=== PATIENT | female | born 1940 | race Caucasian/White ===

== ENCOUNTER 2018-05-07 03:13 | Emergency (ER) | payer OTHER ==
--- OUTSIDE RECORDS SUMMARY | 2018-05-07 03:16 | XMS REPORT | Clinical Summary ---
:1940 [facility] Address [address] [place] [address] Care Team Providers Name Role Phone Unavailable Primary Care Provider Unavailable Allergies No Known Allergies Medications Medication Sig Dispensed Refills Start Date End Date Status nystatin Apply topically 2 15 g 0 07/13/2016 07/13/2017 (MYCOSTATIN) (two) times daily. 100,000 unit/gram powder Active Problems Problem Noted Date Diabetes mellitus type 2, controlled, without complications 07/11/2016 Leukocytosis 07/11/2016 Cellulitis of multiple sites of head and neck 07/10/2016 Morbid obesity 07/10/2016 Essential hypertension 07/10/2016 Chronic bronchitis 07/10/2016 Inspiratory stridor 07/09/2016 Airway compromise 07/09/2016 Social History Tobacco Use Types Packs/Day Years Used Date Never Smoker Sex Assigned at Date Recorded Not on file Job Start Date Occupation Industry Not on file Not on file Not on file Travel History Travel Start Travel End No recent travel history available. Last Filed Vital Signs Not on file Plan of Treatment Not on file Results Not on fileafter 05/06/2017 Insurance Payer Benefit Plan / Group Subscriber ID Type Phone Address MEDICARE MEDICARE A B xxxxxxxxxx Medicare (Home) [address] [place] [phone] Advance Directives For more information, please contact:[facility] HospitalAmxpue[address] [place], [place] [phone] Code Status Date Activated Date Inactivated Comments Full Code 07/09/2016 8:43 AM 07/13/2016 4:05 PM This code status was determined by: Patient
--- OUTSIDE RECORDS SUMMARY | 2018-05-07 03:16 | XMS REPORT ---
:1940 Author Organization [facility] Address [address] [place] [address] [address] [place] [address] Care Team Providers Name Role Phone ALICE QUILES Unavailable Unavailable Problems This patient has no known problems. Allergies, Adverse Reactions, Alerts This patient has no known allergies or adverse reactions. Medications This patient has no known medications. Results Test Description Test Time Test Comments Text Results Atomic Results Result Comments BLOOD CULTURE 2016-07-14 12:00:00 Test Item Value Reference Range Comments CULTURE (BEAKER) (test alxk=1669) No growth in 5 days BLOOD [id number] 12:00:00 Test Item Value Reference Range Comments CULTURE (BEAKER) (test ptyw=4528) No growth in 5 days POCT-GLUCOSE [id number] 11:44:00 Test Item Value Reference Range Comments POC-GLUCOSE METER (BEAKER) 92 mg/dL 70-110 TESTED AT [address] (test mwwm=1127) [facility] [address] POCT-GLUCOSE [id number] 08:17:00 Test Item Value Reference Range Comments POC-GLUCOSE METER (BEAKER) 85 mg/dL 70-110 TESTED AT [address] (test yfeo=7486) [place] [id number] POCT-GLUCOSE [id number] 22:08:00 Test Item Value Reference Range Comments POC-GLUCOSE METER (BEAKER) 115 mg/dL 70-110 TESTED AT [address] (test hbne=2359) [facility] [address] CBC W/PLT COUNT & AUTO [id number] 07:14:00 Test Item Value Reference Range Comments WHITE BLOOD CELL COUNT (BEAKER) (test rpqo=643) 10.9 K/ L 4.0-10.0 RED BLOOD CELL COUNT (BEAKER) (test lgmr=754) 3.40 M/ L 4.00-5.00 HEMOGLOBIN (BEAKER) (test ggfa=551) 11.4 GM/DL 12.0-15.0 HEMATOCRIT (BEAKER) (test lcka=316) 35.2 % 36.0-45.0 MEAN CORPUSCULAR VOLUME (BEAKER) (test gmim=953) 104.0 fL 82.0-99.0 MEAN CORPUSCULAR HEMOGLOBIN (BEAKER) (test 33.6 pg 27.0-33.0 gmru=628) MEAN CORPUSCULAR HEMOGLOBIN CONC (BEAKER) (test 32.4 GM/DL 32.0-36.0 rucs=682) RED CELL DISTRIBUTION WIDTH (BEAKER) (test 13.7 % 10.3-14.2 riev=215) PLATELET COUNT (BEAKER) (test gteo=706) 206 K/CU MM 150-430 MEAN PLATELET VOLUME (BEAKER) (test edir=592) 7.8 fL 6.5-10.5 NUCLEATED RED BLOOD CELLS (BEAKER) (test 0 /100 WBC 0-0 ryaf=129) NEUTROPHILS RELATIVE PERCENT (BEAKER) (test 84 % utlm=250) LYMPHOCYTES RELATIVE PERCENT (BEAKER) (test 8 % lmnu=963) MONOCYTES RELATIVE PERCENT (BEAKER) (test 7 % tvpr=022) EOSINOPHILS RELATIVE PERCENT (BEAKER) (test 0 % oypg=723) BASOPHILS RELATIVE PERCENT (BEAKER) (test 0 % hkjg=655) NEUTROPHILS ABSOLUTE COUNT (BEAKER) (test 9.17 K/ L 1.80-8.00 ghaw=080) LYMPHOCYTES ABSOLUTE COUNT (BEAKER) (test 0.88 K/ L 1.48-4.50 cdfn=467) MONOCYTES ABSOLUTE COUNT (BEAKER) (test 0.79 K/ L 0.00-1.30 fyiu=026) EOSINOPHILS ABSOLUTE COUNT (BEAKER) (test 0.01 K/ L 0.00-0.50 zkuj=080) BASOPHILS ABSOLUTE COUNT (BEAKER) (test 0.01 K/ L 0.00-0.20 sfge=844) 0.00POCT-GLUCOSE [id number] 09:54:00 Test Item Value Reference Range Comments POC-GLUCOSE METER (BEAKER) 157 mg/dL 70-110 TESTED AT [address] (test vgjw=1196) [facility] [address] CBC W/PLT COUNT & AUTO [id number] 09:49:00 Test Item Value Reference Range Comments WHITE BLOOD CELL COUNT (BEAKER) (test umdy=219) 12.8 K/ L 4.0-10.0 RED BLOOD CELL COUNT (BEAKER) (test uggg=947) 3.33 M/ L 4.00-5.00 HEMOGLOBIN (BEAKER) (test nytx=264) 10.7 GM/DL 12.0-15.0 HEMATOCRIT (BEAKER) (test ovro=614) 34.2 % 36.0-45.0 MEAN CORPUSCULAR VOLUME (BEAKER) (test vgvz=344) 103.0 fL 82.0-99.0 MEAN CORPUSCULAR HEMOGLOBIN (BEAKER) (test 32.3 pg 27.0-33.0 eudm=923) MEAN CORPUSCULAR HEMOGLOBIN CONC (BEAKER) (test 31.4 GM/DL 32.0-36.0 zhkp=534) RED CELL DISTRIBUTION WIDTH (BEAKER) (test 12.9 % 10.3-14.2 aozm=825) PLATELET COUNT (BEAKER) (test sqvr=186) 224 K/CU MM 150-430 MEAN PLATELET VOLUME (BEAKER) (test oetc=873) 7.8 fL 6.5-10.5 NUCLEATED RED BLOOD CELLS (BEAKER) (test 0 /100 WBC 0-0 gqzv=632) NEUTROPHILS RELATIVE PERCENT (BEAKER) (test 91 % ntqn=381) LYMPHOCYTES RELATIVE PERCENT (BEAKER) (test 4 % aqrb=990) MONOCYTES RELATIVE PERCENT (BEAKER) (test 5 % rmol=187) EOSINOPHILS RELATIVE PERCENT (BEAKER) (test 0 % wqut=668) BASOPHILS RELATIVE PERCENT (BEAKER) (test 0 % smaw=898) NEUTROPHILS ABSOLUTE COUNT (BEAKER) (test 11.60 K/ L 1.80-8.00 ybeb=626) LYMPHOCYTES ABSOLUTE COUNT (BEAKER) (test 0.52 K/ L 1.48-4.50 dukx=775) MONOCYTES ABSOLUTE COUNT (BEAKER) (test 0.60 K/ L 0.00-1.30 zegv=924) EOSINOPHILS ABSOLUTE COUNT (BEAKER) (test 0.01 K/ L 0.00-0.50 naja=489) BASOPHILS ABSOLUTE COUNT (BEAKER) (test 0.00 K/ L 0.00-0.20 txdf=708) [id number] 07:48:00 Test Item Value Reference Range Comments MAGNESIUM (BEAKER) (test ynix=812) 2.3 mg/dL 1.6-2.6 BASIC METABOLIC [id number] 07:48:00 Test Item Value Reference Range Comments SODIUM (BEAKER) (test 141 meq/L 136-145 azph=817) POTASSIUM (BEAKER) (test 3.9 meq/L 3.5-5.1 txla=241) CHLORIDE (BEAKER) (test 106 meq/L 98-107 famx=718) CO2 (BEAKER) (test 24 meq/L 22-29 dauz=384) BLOOD UREA NITROGEN 31 mg/dL 7-21 (BEAKER) (test domn=130) CREATININE (BEAKER) (test 0.96 mg/dL 0.57-1.25 oyre=435) GLUCOSE RANDOM (BEAKER) 145 mg/dL 70-105 (test otyt=568) CALCIUM (BEAKER) (test 9.1 mg/dL 8.4-10.2 xzbh=744) EGFR (BEAKER) (test 57 mL/min/1.73 sq m ESTIMATED GFR IS NOT lfpq=3635) ACCURATE CREATININE CLEARANCE IN PREDICTING GLOMERULAR FILTRATION RATE. ESTIMATED GFR IS NOT APPLICABLE FOR DIALYSIS PATIENTS. POCT-GLUCOSE [id number] 00:17:00 Test Item Value Reference Range Comments POC-GLUCOSE METER (BEAKER) 173 mg/dL 70-110 TESTED AT [address] (test vtbp=3911) [place] [id number] VANCOMYCIN LEVEL, [id number] 22:09:00 Test Item Value Reference Range Comments VANCOMYCIN TROUGH (BEAKER) (test yxxx=224) 14.7 ug/mL 10.0-20.0 Draw 30 min prior to scheduled dose, HOLD if level > 20 mcg/mL, inform .POCT-GLUCOSE [id number] 17:07:00 Test Item Value Reference Range Comments POC-GLUCOSE METER (BEAKER) 165 mg/dL 70-110 TESTED AT [address] (test gpnv=6898) [place] [id number] POCT-GLUCOSE [id number] 12:25:00 Test Item Value Reference Range Comments POC-GLUCOSE METER (BEAKER) 163 mg/dL 70-110 TESTED AT [facility] [address] (test arcu=1922) [facility] [address] CBC W/PLT COUNT & AUTO [id number] 07:17:00 Test Item Value Reference Range Comments WHITE BLOOD CELL COUNT (BEAKER) (test yqyh=234) 11.5 K/ L 4.0-10.0 RED BLOOD CELL COUNT (BEAKER) (test uyda=911) 3.50 M/ L 4.00-5.00 HEMOGLOBIN (BEAKER) (test vugl=162) 11.8 GM/DL 12.0-15.0 HEMATOCRIT (BEAKER) (test pxnx=043) 36.2 % 36.0-45.0 MEAN CORPUSCULAR VOLUME (BEAKER) (test ofuu=912) 103.0 fL 82.0-99.0 MEAN CORPUSCULAR HEMOGLOBIN (BEAKER) (test 33.6 pg 27.0-33.0 lsjm=264) MEAN CORPUSCULAR HEMOGLOBIN CONC (BEAKER) (test 32.6 GM/DL 32.0-36.0 zszh=409) RED CELL DISTRIBUTION WIDTH (BEAKER) (test 13.8 % 10.3-14.2 arar=955) PLATELET COUNT (BEAKER) (test mxwi=094) 198 K/CU MM 150-430 MEAN PLATELET VOLUME (BEAKER) (test cfsj=619) 7.3 fL 6.5-10.5 NUCLEATED RED BLOOD CELLS (BEAKER) (test 0 /100 WBC 0-0 mexb=142) 0.000.570.000.000.520.000.000.000.00(MANUAL DIFFERENTIAL)2016-07-10 07:17:00 Test Item Value Reference Range Comments NEUTROPHILS - REL (DIFF) (BEAKER) (test srns=6142) 43 % LYMPHOCYTES - REL (DIFF) (BEAKER) (test mnjk=1476) 3 % MONOCYTES - REL (DIFF) (BEAKER) (test ubym=6874) 6 % BANDS - REL (DIFF) (BEAKER) (test vodv=4931) 48 % 0-10 NEUTROPHILS - ABS (DIFF) (BEAKER) (test ysht=5310) 4.95 K/ L 1.80-8.00 LYMPHOCYTES - ABS (DIFF) (BEAKER) (test hmhp=7732) 0.35 K/ L 1.48-4.50 MONOCYTES - ABS (DIFF) (BEAKER) (test spga=0622) 0.69 K/ L 0.00-1.30 BANDS-ABS (DIFF) (BEAKER) (test roxe=4691) 5.5 K/ L 0.0-0.8 TOTAL COUNTED (BEAKER) (test kcqb=0550) 100 BANDS + SEGMENTED NEUTROPHILS (BEAKER) (test 10.47 sjdm=3685) PLT MORPHOLOGY (BEAKER) (test vrhr=013) Normal RBC MORPHOLOGY (BEAKER) (test xksb=455) Normal ATYPICAL LYMPHS(BEAKER) (test ypnw=9063) Present TOXIC GRANULATION (BEAKER) (test tdtw=094) Slight POCT-GLUCOSE [id number] 06:25:00 Test Item Value Reference Range Comments POC-GLUCOSE METER (BEAKER) 186 mg/dL 70-110 TESTED AT [address] (test vinb=2544) [facility] [address] [id number] 04:46:00 Test Item Value Reference Range Comments MAGNESIUM (BEAKER) (test basz=960) 2.0 mg/dL 1.6-2.6 BASIC METABOLIC [id number] 04:46:00 Test Item Value Reference Range Comments SODIUM (BEAKER) (test 141 meq/L 136-145 tkcb=110) POTASSIUM (BEAKER) (test 3.6 meq/L 3.5-5.1 tkdm=863) CHLORIDE (BEAKER) (test 107 meq/L 98-107 fwsn=549) CO2 (BEAKER) (test 26 meq/L 22-29 xkat=657) BLOOD UREA NITROGEN 25 mg/dL 7-21 (BEAKER) (test nztn=670) CREATININE (BEAKER) (test 0.81 mg/dL 0.57-1.25 nxep=469) GLUCOSE RANDOM (BEAKER) 168 mg/dL 70-105 (test vqgf=515) CALCIUM (BEAKER) (test 8.7 mg/dL 8.4-10.2 hxhm=694) EGFR (BEAKER) (test 69 mL/min/1.73 sq m ESTIMATED GFR IS NOT clbu=4761) ACCURATE CREATININE CLEARANCE IN PREDICTING GLOMERULAR FILTRATION RATE. ESTIMATED GFR IS NOT APPLICABLE FOR DIALYSIS PATIENTS. POCT-GLUCOSE [id number] 00:44:00 Test Item Value Reference Range Comments POC-GLUCOSE METER (BEAKER) 176 mg/dL 70-110 TESTED AT [facility] [address] (test zeis=5696) [facility] [address] HEMOGLOBIN [id number] 14:37:00 Test Item Value Reference Range Comments HEMOGLOBIN A1C (BEAKER) (test aopx=442) 7.1 % 4.3-6.1 CBC W/PLT COUNT & AUTO [id number] 10:46:00 Test Item Value Reference Range Comments WHITE BLOOD CELL COUNT (BEAKER) (test gsak=930) 11.3 K/ L 4.0-10.0 RED BLOOD CELL COUNT (BEAKER) (test lczn=087) 3.67 M/ L 4.00-5.00 HEMOGLOBIN (BEAKER) (test tykf=817) 12.4 GM/DL 12.0-15.0 HEMATOCRIT (BEAKER) (test bxkm=628) 37.3 % 36.0-45.0 MEAN CORPUSCULAR VOLUME (BEAKER) (test ipas=037) 102.0 fL 82.0-99.0 MEAN CORPUSCULAR HEMOGLOBIN (BEAKER) (test 33.9 pg 27.0-33.0 boir=791) MEAN CORPUSCULAR HEMOGLOBIN CONC (BEAKER) (test 33.3 GM/DL 32.0-36.0 ubpn=090) RED CELL DISTRIBUTION WIDTH (BEAKER) (test 12.9 % 10.3-14.2 qahq=113) PLATELET COUNT (BEAKER) (test abmy=660) 198 K/CU MM 150-430 MEAN PLATELET VOLUME (BEAKER) (test fesg=593) 7.3 fL 6.5-10.5 NUCLEATED RED BLOOD CELLS (BEAKER) (test 0 /100 WBC 0-0 tupp=492) NEUTROPHILS RELATIVE PERCENT (BEAKER) (test 92 % hobu=769) LYMPHOCYTES RELATIVE PERCENT (BEAKER) (test 3 % nvhs=751) MONOCYTES RELATIVE PERCENT (BEAKER) (test 4 % njhx=885) EOSINOPHILS RELATIVE PERCENT (BEAKER) (test 0 % uuuz=222) BASOPHILS RELATIVE PERCENT (BEAKER) (test 1 % ngtb=571) NEUTROPHILS ABSOLUTE COUNT (BEAKER) (test 10.40 K/ L 1.80-8.00 uhqq=808) LYMPHOCYTES ABSOLUTE COUNT (BEAKER) (test 0.36 K/ L 1.48-4.50 ehvc=089) MONOCYTES ABSOLUTE COUNT (BEAKER) (test 0.44 K/ L 0.00-1.30 msbj=074) EOSINOPHILS ABSOLUTE COUNT (BEAKER) (test 0.01 K/ L 0.00-0.50 ghpx=995) BASOPHILS ABSOLUTE COUNT (BEAKER) (test 0.15 K/ L 0.00-0.20 eyvx=315) [id number] 10:40:00 Test Item Value Reference Range Comments MAGNESIUM (BEAKER) (test awto=754) 1.8 mg/dL 1.6-2.6 BASIC METABOLIC [id number] 10:40:00 Test Item Value Reference Range Comments SODIUM (BEAKER) (test 141 meq/L 136-145 xmlh=063) POTASSIUM (BEAKER) (test 4.2 meq/L 3.5-5.1 dogb=311) CHLORIDE (BEAKER) (test 106 meq/L 98-107 mjgp=883) CO2 (BEAKER) (test 24 meq/L 22-29 gheu=623) BLOOD UREA NITROGEN 22 mg/dL 7-21 (BEAKER) (test hpzm=212) CREATININE (BEAKER) (test 0.84 mg/dL 0.57-1.25 lxez=563) GLUCOSE RANDOM (BEAKER) 158 mg/dL 70-105 (test ilcl=459) CALCIUM (BEAKER) (test 8.6 mg/dL 8.4-10.2 mons=758) EGFR (BEAKER) (test 66 mL/min/1.73 sq m ESTIMATED GFR IS NOT ivnv=2538) ACCURATE CREATININE CLEARANCE IN PREDICTING GLOMERULAR FILTRATION RATE. ESTIMATED GFR IS NOT APPLICABLE FOR DIALYSIS PATIENTS. [id number] 10:40:00 Test Item Value Reference Range Comments PARTIAL THROMBOPLASTIN TIME (BEAKER) (test 30.6 seconds 22.5-36.0 pfeh=164) PROTHROMBIN TIME/[id number] 10:39:00 Test Item Value Reference Range Comments PROTIME (BEAKER) (test eukv=674) 14.3 seconds 11.7-14.7 INR (BEAKER) (test bokk=504) 1.1 <=5.9 RECOMMENDED COUMADIN/WARFARIN INR THERAPY RANGESSTANDARD DOSE: 2.0 - 3.0 Includes: PROPHYLAXIS forvenous thrombosis, systemic embolization; TREATMENT for venous thrombosis and/or pulmonary embolus.HIGH RISK: Target INR is 2.5-3.5 for patients with mechanical heart valves.
[2018-05-07] MEDS ORDERED: FENTANYL CITR 100 MCG/2 ML ONE (04:45)
[2018-05-07] MEDS ORDERED: ONDANSETRON 4 MG/2 ML VIAL ONE (04:45)
[2018-05-07] MEDS ORDERED: NA CHLORIDE 0.9% 1,000 ML ONE (04:46)
[2018-05-07 04:55] LABS: Absolute Lymphocytes (CBC) 1.2 K/uL (0.7-4.9); Absolute Neutrophil 5.1 K/uL (1.8-8.0); Basophils % 0.9 % (0-1.3); Eosinophils % 5.5 % (0-4.4); Hematocrit 39.2 % (36.0-45.0); Lymphocytes % 15.3 % (15.3-44.8); MPV 8.5 fL (7.6-11.3); Monocytes % 12.3 % (3.3-12.3); RBC Red Blood Cell Count 4.21 M/uL (3.86-4.86)
[2018-05-07 05:22] LABS: Albumin 3.6 g/dL (3.4-5.0); Bilirubin Total 0.5 mg/dL (0.2-1.0); Potassium 3.6 mmol/L (3.5-5.1)
--- NOTE | 2018-05-07 05:50 | ER ---
Nurse's Notes [facility] Unit Name: Vicky Johnson Age: 78 yrs Sex: Female : 1940 Arrival Date: 05/07/2018 Time: 03:15 Bed 8 Private MD: Vance Rodriguez V Diagnosis: Fall due to bumping against object;Type 2 diabetes mellitus;Pain in left hip-fall;Low back pain;Fracture of third lumbar vertebra-right L3 facet, questionable fracture;Urinary tract infection, site not specified Presentation: 05/07 03:26 Presenting complaint: Patient states: Patient had a fall a week ago and X-ray was done ao yesterday outpatient but patient unaware of the results. Patient complains of left hip pain and back pain and denies nausea or vomiting. Transition of care: patient was not received from another setting of care. Onset of symptoms was April 30, 2018. Risk Assessment: Do you want to hurt yourself or someone else? Patient reports no desire to harm self or others. Initial Sepsis Screen: Does the patient meet any 2 criteria? No. Patient's initial sepsis screen is negative. Does the patient have a suspected source of infection? No. Patient's initial sepsis screen is negative. Care prior to arrival: None. 03:26 Method Of Arrival: Wheelchair ao 03:26 Acuity: BETO 3 ao Historical: - Allergies: 03:36 No Known Allergies; ao - Home Meds: 03:36 citalopram 20 mg tab 1 tab once daily [Active]; cyclobenzaprine 10 mg Oral tab 1 tab as ao needed [Active]; gabapentin 100 mg Oral cap 3 times per day [Active]; glimepiride 2 mg Oral tab 1 tab once daily [Active]; [place] 5-325 mg Oral tab [Active]; prednisone 10 mg Oral tab once daily [Active]; propranolol 120 mg Oral Cs24 1 cap once daily [Active]; triamterene-hydrochlorothiazid 37.5-25 mg Oral tab 1 tab once daily [Active]; - PMHx: 03:36 COPD; Hypertension; Diabetes - NIDDM; ao - PSHx: 03:33 Brain; Shoulder Sx; ao - Immunization history:: Adult Immunizations up to date. - Social history:: Smoking status: Patient/guardian denies using tobacco, Patient/guardian denies using alcohol, street drugs. - Ebola Screening: : Patient negative for fever greater than or equal to 101.5 degrees Fahrenheit, and additional compatible Ebola Virus Disease symptoms Patient denies exposure to infectious person Patient denies travel to an Ebola-affected area in the 21 days before illness onset. Screenin:44 Abuse screen: Denies threats or abuse. Denies injuries from another. Nutritional ao screening: No deficits noted. Tuberculosis screening: No symptoms or risk factors identified. Fall Risk Fall in past 12 months (25 points). Ambulatory Aid- Crutches/Cane/Walker (15 pts). Gait- Weak (10 pts.). Assessment: 03:32 General: Appears in no apparent distress. uncomfortable, obese, Behavior is calm, ao cooperative, appropriate for age. Pain: Complains of pain in back and left hip Pain currently is 10 out of 10 on a pain scale. Neuro: Level of Consciousness is awake, alert, obeys commands, Oriented to person, place, time, situation, Appropriate for age Moves all extremities. Full function Speech is normal, Facial symmetry appears normal. Cardiovascular: Heart tones S1 S2 Capillary refill < 3 seconds. Respiratory: Airway is patent Respiratory effort is even, unlabored, Respiratory pattern is regular, symmetrical. GI: Abdomen is obese. : No signs and/or symptoms were reported regarding the genitourinary system. EENT: No signs and/or symptoms were reported regarding the EENT system. Derm: Skin is pink, warm \T\ dry. normal, Skin temperature is warm. Musculoskeletal: Circulation, motion, and sensation intact. Range of motion: limited in all extremities, Reports pain in Back and left hip. Injury Description: Fall a week ago. Pt reports back pain and left hip pain. 03:40 Reassessment: Patient had a fall a week ago. No trauma activation at this time. ao 04:50 Reassessment: Patient appears in no apparent distress at this time. Patient and/or ao family updated on plan of care and expected duration. Pain level reassessed. Patient is alert, oriented x 3, equal unlabored respirations, skin warm/dry/pink. 06:19 Reassessment: DC instructions given to patient. Patient agree with POC and to follow up ao with PCP. Vital Signs: 03:33 BP 154 / 83; Pulse 81; Resp 16; Temp 97.6(O); Pulse Ox 96% on R/A; Weight 113.4 kg; ao Height 5 ft. 2 in. (157.48 cm); Pain 10/10; 04:10 BP 137 / 90; Pulse 79; Resp 18; Pulse Ox 95% on R/A; ea 05:53 BP 151 / 81; Pulse 76; Resp 16; Pulse Ox 97% ; ao 03:33 Body Mass Index 45.73 (113.40 kg, 157.48 cm) ao ED Course: 03:15 Patient arrived in ED. am2 03:15 Vance Rodriguez MD is Private Physician. am2 03:26 Shamar Torres, RN is Primary Nurse. ao 03:29 Triage completed. ao 03:34 Arm band placed on right wrist. Patient placed in an exam room, on a stretcher, on ao pulse oximetry, Patient notified of wait time. 03:42 To Roche MD is Attending Physician. delmar 03:44 Patient has correct armband on for positive identification. Pulse ox on. NIBP on. ao 05:[address] via stretcher. eh 05:11 CT completed. Patient tolerated procedure well. Patient moved back from CT. eh 05:40 Urine Culture Sent. ao 05:40 CBC with Diff Sent. ao 05:40 Comprehensive Metabolic Panel Sent. ao 05:40 CT Lumbar Spine Wo Con Sent. ao 05:40 Straight cath inserted, using sterile technique, 16 Fr. Specimen obtained. Returned ds4 cloudy urine. Patient tolerated well. 05:41 CT Pelvis wo Cont: include both hips Sent. ao 05:47 Vance Rodriguez MD is Referral Physician. delmar 05:47 Peyman Quiroz MD is Referral Physician. [place]mar 06:17 No provider procedures requiring assistance completed. IV discontinued, intact, ao bleeding controlled, No redness/swelling at site. Pressure dressing applied. Administered Medications: 04:35 Drug: NS 0.9% 500 ml Route: IV; Rate: bolus; Site: right antecubital; ao 05:51 Follow up: IV Status: Completed infusion; IV Intake: 500ml ao 04:51 Drug: Zofran 4 mg Route: IVP; Site: right antecubital; ao 05:52 Follow up: Response: No adverse reaction ao 04:52 Drug: fentaNYL (PF) 25 mcg Route: IVP; Site: right antecubital; ao 05:51 Follow up: Response: No adverse reaction ao 05:52 Follow up: Response: No adverse reaction ao 06:16 Drug: Rocephin - (cefTRIAXone) 1 grams Route: IVPB; Infused Over: 30 mins; Site: left ao antecubital; 06:16 Follow up: Response: No adverse reaction; IV Status: Completed infusion ao Intake: 05:51 IV: 500ml; Total: 500ml. ao Outcome: 05:47 Discharge ordered by . delmar 06:18 Discharged to home ambulatory. ao 06:18 Condition: stable 06:18 Discharge instructions given to patient, family, Instructed on discharge instructions, follow up and referral plans. Demonstrated understanding of instructions, follow-up care, medications. 06:19 Patient left the ED. ao Addendum: 05/11/2018 07:54 Addendum: Culture Results: Positive urine culture. No further action required. Bacteria i w sensitive to prescribed antibiotic. Signatures: To Roche MD MD cha Hagler, Ervin eh Williams, Irene, Duarte Culp RN ds4 Shamar Torres RN RN ao Moreno, Amanda am2 Fidelia Brooke RN RN ea Corrections: (The following items were deleted from the chart) 05/07 03:46 03:44 Fall Risk None identified. ao ao
--- NOTE | 2018-05-07 05:50 | EDPHYS ---
Physician Documentation [facility] Name: Vicky Johnson Age: 78 yrs Sex: Female : 1940 Arrival Date: 05/07/2018 Time: 03:15 Bed 8 Private MD: Vance Rodriguez V ED Physician To Roche HPI: 05/07 04:34 This 78 yrs old Female presents to ER via Wheelchair with complaints of Fall delmar Injury, Hip Pain, Back Pain. 04:34 Details of fall: The patient fell from an upright position, while walking. Onset: The delmar symptoms/episode began/occurred 1 week(s) ago. Associated injuries: The patient sustained injury to the low back, left femoral area and left hip, decreased range of motion, painful injury. Severity of symptoms: At their worst the symptoms were mild, moderate, in the emergency department the symptoms are unchanged. The patient has not experienced similar symptoms in the past. Historical: - Allergies: 03:36 No Known Allergies; ao - Home Meds: 03:36 citalopram 20 mg tab 1 tab once daily [Active]; cyclobenzaprine 10 mg Oral tab 1 tab as ao needed [Active]; gabapentin 100 mg Oral cap 3 times per day [Active]; glimepiride 2 mg Oral tab 1 tab once daily [Active]; [place] 5-325 mg Oral tab [Active]; prednisone 10 mg Oral tab once daily [Active]; propranolol 120 mg Oral Cs24 1 cap once daily [Active]; triamterene-hydrochlorothiazid 37.5-25 mg Oral tab 1 tab once daily [Active]; - PMHx: 03:36 COPD; Hypertension; Diabetes - NIDDM; ao - PSHx: 03:33 Brain; Shoulder Sx; ao - Immunization history:: Adult Immunizations up to date. - Social history:: Smoking status: Patient/guardian denies using tobacco, Patient/guardian denies using alcohol, street drugs. - Ebola Screening: : Patient negative for fever greater than or equal to 101.5 degrees Fahrenheit, and additional compatible Ebola Virus Disease symptoms Patient denies exposure to infectious person Patient denies travel to an Ebola-affected area in the 21 days before illness onset. ROS: 04:35 Constitutional: Negative for fever, chills, and weight loss, Eyes: Negative for injury, delmar pain, redness, and discharge, ENT: Negative for injury, pain, and discharge, Neck: Negative for injury, pain, and swelling, Cardiovascular: Negative for chest pain, palpitations, and edema, Respiratory: Negative for shortness of breath, cough, wheezing, and pleuritic chest pain, Abdomen/GI: Negative for abdominal pain, nausea, vomiting, diarrhea, and constipation, : Negative for injury, bleeding, discharge, and swelling, Skin: Negative for injury, rash, and discoloration, Neuro: Negative for headache, weakness, numbness, tingling, and seizure, Psych: Negative for depression, anxiety, suicide ideation, homicidal ideation, and hallucinations, Allergy/Immunology: Negative for hives, rash, and allergies, Endocrine: Negative for neck swelling, polydipsia, polyuria, polyphagia, and marked weight changes, Hematologic/Lymphatic: Negative for swollen nodes, abnormal bleeding, and unusual bruising. 04:35 Back: Positive for injury or acute deformity, decreased range of motion, pain at rest, pain with movement, of the lumbar area and left low back. 04:35 MS/extremity: Positive for decreased range of motion, pain, tenderness, of the left femoral area and left hip. Exam: 04:35 Constitutional: This is a well developed, well nourished patient who is awake, alert, delmar and in no acute distress. Head/Face: Normocephalic, atraumatic. Eyes: Pupils equal round and reactive to light, extra-ocular motions intact. Lids and lashes normal. Conjunctiva and sclera are non-icteric and not injected. Cornea within normal limits. Periorbital areas with no swelling, redness, or edema. ENT: Nares patent. No nasal discharge, no septal abnormalities noted. Tympanic membranes are normal and external auditory canals are clear. Oropharynx with no redness, swelling, or masses, exudates, or evidence of obstruction, uvula midline. Mucous membranes moist. Neck: Trachea midline, no thyromegaly or masses palpated, and no cervical lymphadenopathy. Supple, full range of motion without nuchal rigidity, or vertebral point tenderness. No Meningismus. Chest/axilla: Normal chest wall appearance and motion. Nontender with no deformity. No lesions are appreciated. Cardiovascular: Regular rate and rhythm with a normal S1 and S2. No gallops, murmurs, or rubs. Normal PMI, no JVD. No pulse deficits. Respiratory: Lungs have equal breath sounds bilaterally, clear to auscultation and percussion. No rales, rhonchi or wheezes noted. No increased work of breathing, no retractions or nasal flaring. Abdomen/GI: Soft, non-tender, with normal bowel sounds. No distension or tympany. No guarding or rebound. No evidence of tenderness throughout. Back: No spinal tenderness. No costovertebral tenderness. Full range of motion. Skin: Warm, dry with normal turgor. Normal color with no rashes, no lesions, and no evidence of cellulitis. Neuro: Awake and alert, GCS 15, oriented to person, place, time, and situation. Cranial nerves II-XII grossly intact. Motor strength 5/5 in all extremities. Sensory grossly intact. Cerebellar exam normal. Normal gait. Psych: Awake, alert, with orientation to person, place and time. Behavior, mood, and affect are within normal limits. 04:35 Musculoskeletal/extremity: ROM: limited active range of motion due to pain, limited passive range of motion due to pain, Circulation is intact in all extremities. Sensation intact. Compartment Syndrome exam of affected extremity: is normal. DVT Exam: no swelling, negative Homans' sign noted on exam, no appreciated bluish discoloration, no erythema, no increased warmth, pain, tenderness. Vital Signs: 03:33 BP 154 / 83; Pulse 81; Resp 16; Temp 97.6(O); Pulse Ox 96% on R/A; Weight 113.4 kg; ao Height 5 ft. 2 in. (157.48 cm); Pain 10/10; 04:10 BP 137 / 90; Pulse 79; Resp 18; Pulse Ox 95% on R/A; ea 05:53 BP 151 / 81; Pulse 76; Resp 16; Pulse Ox 97% ; ao 03:33 Body Mass Index 45.73 (113.40 kg, 157.48 cm) ao MDM: 03:42 Patient medically screened. [facility] 04:35 Data reviewed: vital signs, nurses notes, lab test result(s), radiologic studies, CT [facility] scan, plain films. 05/07 04:33 Order name: CBC with Diff [facility] 05/07 04:33 Order name: Comprehensive Metabolic Panel [facility] 05/07 04:33 Order name: Urine Culture [facility] 05/07 04:58 Order name: CBC with Automated Diff; Complete Time: 05:14 EDMS 05/07 05:22 Order name: Comprehensive Metabolic Panel; Complete Time: 05:46 EDMS 05/07 05:52 Order name: Urine Dipstick--Ancillary (enter results) ds4 05/07 04:33 Order name: CT Pelvis wo Cont: include both hips [facility] 05/07 04:34 Order name: CT Lumbar Spine Wo Con [facility] 05/07 04:33 Order name: Urine Dipstick-Ancillary (obtain specimen); Complete Time: 05:40 [facility] Administered Medications: 04:35 Drug: NS 0.9% 500 ml Route: IV; Rate: bolus; Site: right antecubital; ao 05:51 Follow up: IV Status: Completed infusion; IV Intake: 500ml ao 04:51 Drug: Zofran 4 mg Route: IVP; Site: right antecubital; ao 05:52 Follow up: Response: No adverse reaction ao 04:52 Drug: fentaNYL (PF) 25 mcg Route: IVP; Site: right antecubital; ao 05:51 Follow up: Response: No adverse reaction ao 05:52 Follow up: Response: No adverse reaction ao 06:16 Drug: Rocephin - (cefTRIAXone) 1 grams Route: IVPB; Infused Over: 30 mins; Site: left ao antecubital; 06:16 Follow up: Response: No adverse reaction; IV Status: Completed infusion ao Disposition: 05/07/18 05:47 Discharged to Home. Impression: Fall due to bumping against object, Type 2 diabetes mellitus, Pain in left hip - fall, Low back pain, Fracture of third lumbar vertebra - right L3 facet, questionable fracture, Urinary tract infection, site not specified. - Condition is Fair. - Discharge Instructions: Back Pain, Adult, Chronic Back Pain, Type 2 Diabetes Mellitus, Diagnosis, Adult, Musculoskeletal Pain, Urinary Tract Infection, Adult, Lumbar Fracture, Back Injury Prevention, Bvfi-[id number]-Ntzr, Back Pain, Adult, Lfgv-xr-Sikd, Type 2 Diabetes Mellitus, Diagnosis, Adult, Jhum-cc-Rafa. - Prescriptions for Tylenol- Codeine #3 300-30 mg Oral Tablet - take 2 tablets by ORAL route every 6 hours As needed; 26 tablet. Motrin IB 200 mg Oral Tablet - take 2 tablet by ORAL route every 8 hours As needed as needed with food; 30 tablet. Cipro 250 mg Oral Tablet - take 1 tablet by ORAL route every 12 hours; 14 tablet. - Medication Reconciliation Form, Thank You Letter, Antibiotic Education, Prescription Opioid Use form. - Follow up: Vance Rodriguez; When: 2 - 3 days; Reason: Recheck today's complaints, Continuance of care, Re-evaluation by your physician. Follow up: Peyman Quiroz; When: 2 - 3 days; Reason: Recheck today's complaints, Re-evaluation by your physician. - Problem is new. - Symptoms have improved. Signatures: Dispatcher [employer] EDMS To Roche MD MD cha Ortiz, Alex RN RN ao Corrections: (The following items were deleted from the chart) 05:51 05:47 05/07/2018 05:47 Discharged to Home. Impression: Fall due to bumping against delmar object; Type 2 diabetes mellitus; Pain in left hip - fall; Low back pain. Condition is Fair. Discharge Instructions: Back Pain, Adult, Chronic Back Pain, Type 2 Diabetes Mellitus, Diagnosis, Adult, Musculoskeletal Pain, Back Injury Prevention, Jbxt-[id number], Back Pain, Adult, Xemw-gb-Lzls, Type 2 Diabetes Mellitus, Diagnosis, Adult, Iwtx-bq-Swuy. Prescriptions for Tylenol-Codeine #3 300-30 mg Oral Tablet - take 2 tablets by ORAL route every 6 hours As needed; 26 tablet, Motrin IB 200 mg Oral Tablet - take 2 tablet by ORAL route every 8 hours As needed as needed with food; 30 tablet. and Forms are Medication Reconciliation Form, Thank You Letter, Antibiotic Education, Prescription Opioid Use. Follow up: Vance Rodriguez; When: 2 - 3 days; Reason: Recheck today's complaints, Continuance of care, Re-evaluation by your physician. Follow up: Peyman Quiroz; When: 2 - 3 days; Reason: Recheck today's complaints, Re-evaluation by your physician. Problem is new. Symptoms have improved. [facility] 06:19 05:51 05/07/2018 05:47 Discharged to Home. Impression: Fall due to bumping against ao object; Type 2 diabetes mellitus; Pain in left hip - fall; Low back pain; Fracture of third lumbar vertebra - right L3 facet, questionable fracture; Urinary tract infection, site not specified. Condition is Fair. Discharge Instructions: Back Pain, Adult, Chronic Back Pain, Type 2 Diabetes Mellitus, Diagnosis, Adult, Musculoskeletal Pain, Back Injury Prevention, Nasx-ox-Autt, Back Pain, Adult, Nele-zt-Mutv, Type 2 Diabetes Mellitus, Diagnosis, Adult, Uenf-wc-Wkmo. Prescriptions for Tylenol-Codeine #3 300-30 mg Oral Tablet - take 2 tablets by ORAL route every 6 hours As needed; 26 tablet, Motrin IB 200 mg Oral Tablet - take 2 tablet by ORAL route every 8 hours As needed as needed with food; 30 tablet. and Forms are Medication Reconciliation Form, Thank You Letter, Antibiotic Education, Prescription Opioid Use. Follow up: Vance Rodriguez; When: 2 - 3 days; Reason: Recheck today's complaints, Continuance of care, Re-evaluation by your physician. Follow up: Peyman Quiroz; When: 2 - 3 days; Reason: Recheck today's complaints, Re-evaluation by your physician. Problem is new. Symptoms have improved. delmar
[2018-05-07] MEDS ORDERED: CEFTRIAXONE 1000 MG/VIAL ONE (06:05)
[2018-05-07 06:26] VITALS: TEMP 97.6
[2018-05-07 06:28] VITALS: BP 151/81; O2SAT 97
[2018-05-07 07:14] LABS: Urine Blood TRACE (NEG); Urine Glucose NEGATIVE (NEG); Urine Protein NEGATIVE (NEG); Urine Specific Gravity 1.015 (1.005-1.030); Urine pH 5.5 (5.0-7.0)
--- NOTE | 2018-05-07 08:24 | RAD REPORT ---
EXAM DESCRIPTION: CT - Pelvis Wo Cont - 05/07/2018 6:41 am CLINICAL HISTORY: PAIN Trauma, hip pain and swelling. COMPARISON: No comparisons TECHNIQUE: All CT scans are performed using dose optimization technique as appropriate and may inclu de automated exposure control or mA/KV adjustment according to patient size. FINDINGS: No fracture or dislocation is seen. Degenerative changes are present in both sacroiliac joints. Grade 1 anterolisthesis of L5 on S1 with chronic bilateral spondylolysis. Sigmoid diverticulosis coli without diverticulitis. Small fat containing umbilical hernia. IMPRESSION: Bilateral spondylolysis with grade 1 anterolisthesis of L5 on S1. No acute fracture or dislocation evident.
--- NOTE | 2018-05-07 08:27 | RAD REPORT ---
EXAM DESCRIPTION: CT - Spine Lumbar Wo Con - 05/07/2018 6:41 am CLINICAL HISTORY: Radiculopathy. PAIN COMPARISON: No comparisons TECHNIQUE: Axial noncontrast CT imaging of the lumbar spine was performed with coronal and sagittal re-formatted images. All CT scans are performed using dose optimization technique as appropriate and may include automated exposure control or mA/KV adjustment according to patient size. FINDINGS: Transverse linear lucency is seen in the inferior right facet of L3. This may represent a nondisplaced fracture. Chronic bilateral spondylolysis L5-S1 with grade 1 anterolisthesis noted. Paraspinal tissues are normal in thickness. No paraspinal abscess or hematoma seen. Multilevel degenerative changes throughout the lumbar spine with vacuum disc degeneration. IMPRESSION: Questionable nondisplaced fracture right L3 facet. MR imaging of the lumbar spine for fo llowup assessment may be considered. Chronic bilateral spondylolysis with grade 1 anterolisthesis at L5-S1.
== END 2018-05-07 06:19 | disposition home or self-care (01) ==
LOC: ER 03:13
DX: S32.039A Unspecified fracture of third lumbar vertebra, initial encounter for closed fracture (principal); M25.552 Pain in left hip; N39.0 Urinary tract infection, site not specified; E11.9 Type 2 diabetes mellitus without complications; I10 Essential (primary) hypertension; J44.9 Chronic obstructive pulmonary disease, unspecified; W18.39XA Other fall on same level, initial encounter; Y93.01 Activity, walking, marching and hiking; Y92.9 Unspecified place or not applicable
CPT/HCPCS: 36415; 51702; 72131; 72192; 80053; 81003; 85025; 87077; 87086; 87088; 87186; 99284; J2405; J3010; J7030

== ENCOUNTER 2018-10-01 11:34 | Day surgery (SDC) | payer OTHER ==
[2018-10-01] MEDS ORDERED: Zoledronic Acid/Mannitol/Water 5 MG/100 ML INFUS.BOT IV ONE (11:45)
--- OUTSIDE RECORDS SUMMARY | 2018-10-01 11:50 | XMS REPORT | Clinical Summary ---
:1940 [facility] Address [address] [place] [address] Care Team Providers Name Role Phone Unavailable Primary Care Provider Unavailable Allergies No Known Allergies Medications No known medications Active Problems Problem Noted Date Diabetes mellitus [...] Not on file Results Not on fileafter 09/30/2017 Insurance Payer Benefit Plan / Group Subscriber ID Type Phone Address MEDICARE MEDICARE A B xxxxxxxxxx Medicare Advance Directives For more information, please contact:[facility] [address] [place], [place] [phone] Code Status Date Activated Date Inactivated Comments Full Code 07/09/2016 8:43 AM 07/13/2016 4:05 PM This code status was determined by: Patient
--- OUTSIDE RECORDS SUMMARY | 2018-10-01 11:50 | XMS REPORT ---
:1940 Author Organization [facility] Address [address] [place] [address] [address]. [address] [place] [address] Care Team Providers Name Role Phone ALICE QUILES Unavailable Unavailable Problems This patient has no known problems. Allergies, Adverse Reactions, Alerts This patient has no known allergies or adverse reactions. Medications This patient has no known medications. Results Test Description Test Time Test Comments Text Results Atomic Results Result Comments BLOOD CULTURE 2016-07-14 12:00:00 Test Item Value Reference Range Comments CULTURE (BEAKER) (test xcqe=3103) No growth in 5 days BLOOD [id number] 12:00:00 Test Item Value Reference Range Comments CULTURE (BEAKER) (test wxmu=1150) No growth in 5 days POCT-GLUCOSE [id number] 11:44:00 Test Item Value Reference Range Comments POC-GLUCOSE METER (BEAKER) 92 mg/dL 70-110 TESTED AT [address] (test cemy=7691) [place] [id number] POCT-GLUCOSE [id number] 08:17:00 Test Item Value Reference Range Comments POC-GLUCOSE METER (BEAKER) 85 mg/dL 70-110 TESTED AT [address] (test fxlk=0933) [place] [id number] POCT-GLUCOSE [id number] 22:08:00 Test Item Value Reference Range Comments POC-GLUCOSE METER (BEAKER) 115 mg/dL 70-110 TESTED AT [address] (test ayvx=8386) [place] [id number] CBC W/PLT COUNT & AUTO [id number] 07:14:00 Test Item Value Reference Range Comments WHITE BLOOD CELL COUNT (BEAKER) (test coxv=584) 10.9 K/ L 4.0-10.0 RED BLOOD CELL COUNT (BEAKER) (test mnin=441) 3.40 M/ L 4.00-5.00 HEMOGLOBIN (BEAKER) (test bttg=776) 11.4 GM/DL 12.0-15.0 HEMATOCRIT (BEAKER) (test yblh=230) 35.2 % 36.0-45.0 MEAN CORPUSCULAR VOLUME (BEAKER) (test lzuh=939) 104.0 fL 82.0-99.0 MEAN CORPUSCULAR HEMOGLOBIN (BEAKER) (test 33.6 pg 27.0-33.0 elcr=639) MEAN CORPUSCULAR HEMOGLOBIN CONC (BEAKER) (test 32.4 GM/DL 32.0-36.0 rpub=470) RED CELL DISTRIBUTION WIDTH (BEAKER) (test 13.7 % 10.3-14.2 stgw=949) PLATELET COUNT (BEAKER) (test gszd=793) 206 K/CU MM 150-430 MEAN PLATELET VOLUME (BEAKER) (test pthe=541) 7.8 fL 6.5-10.5 NUCLEATED RED BLOOD CELLS (BEAKER) (test 0 /100 WBC 0-0 myag=790) NEUTROPHILS RELATIVE PERCENT (BEAKER) (test 84 % ljeh=047) LYMPHOCYTES RELATIVE PERCENT (BEAKER) (test 8 % lytn=814) MONOCYTES RELATIVE PERCENT (BEAKER) (test 7 % gogz=633) EOSINOPHILS RELATIVE PERCENT (BEAKER) (test 0 % gwvu=625) BASOPHILS RELATIVE PERCENT (BEAKER) (test 0 % iwgt=078) NEUTROPHILS ABSOLUTE COUNT (BEAKER) (test 9.17 K/ L 1.80-8.00 zrsa=950) LYMPHOCYTES ABSOLUTE COUNT (BEAKER) (test 0.88 K/ L 1.48-4.50 pzci=446) MONOCYTES ABSOLUTE COUNT (BEAKER) (test 0.79 K/ L 0.00-1.30 neke=796) EOSINOPHILS ABSOLUTE COUNT (BEAKER) (test 0.01 K/ L 0.00-0.50 ngji=950) BASOPHILS ABSOLUTE COUNT (BEAKER) (test 0.01 K/ L 0.00-0.20 kfnc=178) 0.00POCT-GLUCOSE [id number] 09:54:00 Test Item Value Reference Range Comments POC-GLUCOSE METER (BEAKER) 157 mg/dL 70-110 TESTED AT [facility] [address] [facility] (test ebho=5256) [facility] [address] CBC W/PLT COUNT & AUTO [id number] 09:49:00 Test Item Value Reference Range Comments WHITE BLOOD CELL COUNT (BEAKER) (test umrn=167) 12.8 K/ L 4.0-10.0 RED BLOOD CELL COUNT (BEAKER) (test ryfg=439) 3.33 M/ L 4.00-5.00 HEMOGLOBIN (BEAKER) (test qdxv=692) 10.7 GM/DL 12.0-15.0 HEMATOCRIT (BEAKER) (test jeku=766) 34.2 % 36.0-45.0 MEAN CORPUSCULAR VOLUME (BEAKER) (test veez=524) 103.0 fL 82.0-99.0 MEAN CORPUSCULAR HEMOGLOBIN (BEAKER) (test 32.3 pg 27.0-33.0 fdov=711) MEAN CORPUSCULAR HEMOGLOBIN CONC (BEAKER) (test 31.4 GM/DL 32.0-36.0 pkvm=888) RED CELL DISTRIBUTION WIDTH (BEAKER) (test 12.9 % 10.3-14.2 bomb=923) PLATELET COUNT (BEAKER) (test amgw=586) 224 K/CU MM 150-430 MEAN PLATELET VOLUME (BEAKER) (test fppm=413) 7.8 fL 6.5-10.5 NUCLEATED RED BLOOD CELLS (BEAKER) (test 0 /100 WBC 0-0 fjwx=179) NEUTROPHILS RELATIVE PERCENT (BEAKER) (test 91 % yzmf=818) LYMPHOCYTES RELATIVE PERCENT (BEAKER) (test 4 % omfu=601) MONOCYTES RELATIVE PERCENT (BEAKER) (test 5 % iapb=739) EOSINOPHILS RELATIVE PERCENT (BEAKER) (test 0 % mzsb=421) BASOPHILS RELATIVE PERCENT (BEAKER) (test 0 % esgp=764) NEUTROPHILS ABSOLUTE COUNT (BEAKER) (test 11.60 K/ L 1.80-8.00 etcl=368) LYMPHOCYTES ABSOLUTE COUNT (BEAKER) (test 0.52 K/ L 1.48-4.50 bfwo=973) MONOCYTES ABSOLUTE COUNT (BEAKER) (test 0.60 K/ L 0.00-1.30 fopt=973) EOSINOPHILS ABSOLUTE COUNT (BEAKER) (test 0.01 K/ L 0.00-0.50 trfy=783) BASOPHILS ABSOLUTE COUNT (BEAKER) (test 0.00 K/ L 0.00-0.20 lgxs=123) [id number] 07:48:00 Test Item Value Reference Range Comments MAGNESIUM (BEAKER) (test ewap=260) 2.3 mg/dL 1.6-2.6 BASIC METABOLIC [id number] 07:48:00 Test Item Value Reference Range Comments SODIUM (BEAKER) (test 141 meq/L 136-145 stij=636) POTASSIUM (BEAKER) (test 3.9 meq/L 3.5-5.1 mjty=558) CHLORIDE (BEAKER) (test 106 meq/L 98-107 terw=625) CO2 (BEAKER) (test 24 meq/L 22-29 qage=562) BLOOD UREA NITROGEN 31 mg/dL 7-21 (BEAKER) (test aqjf=314) CREATININE (BEAKER) (test 0.96 mg/dL 0.57-1.25 bfds=968) GLUCOSE RANDOM (BEAKER) 145 mg/dL 70-105 (test hesa=651) CALCIUM (BEAKER) (test 9.1 mg/dL 8.4-10.2 hitn=390) EGFR (BEAKER) (test 57 mL/min/1.73 sq m ESTIMATED GFR IS NOT kmso=8706) ACCURATE CREATININE CLEARANCE IN PREDICTING GLOMERULAR FILTRATION RATE. ESTIMATED GFR IS NOT APPLICABLE FOR DIALYSIS PATIENTS. POCT-GLUCOSE [id number] 00:17:00 Test Item Value Reference Range Comments POC-GLUCOSE METER (BEAKER) 173 mg/dL 70-110 TESTED AT [address] (test ovjs=9057) [facility] [address] VANCOMYCIN LEVEL, [id number] 22:09:00 Test Item Value Reference Range Comments VANCOMYCIN TROUGH (BEAKER) (test qqil=610) 14.7 ug/mL 10.0-20.0 Draw 30 min prior to scheduled dose, HOLD if level > 20 mcg/mL, inform .POCT-GLUCOSE [id number] 17:07:00 Test Item Value Reference Range Comments POC-GLUCOSE METER (BEAKER) 165 mg/dL 70-110 TESTED AT [address] (test xejj=9767) [facility] [address] POCT-GLUCOSE [id number] 12:25:00 Test Item Value Reference Range Comments POC-GLUCOSE METER (BEAKER) 163 mg/dL 70-110 TESTED AT [facility] [address] (test hrnt=6487) [place] [address] CBC W/PLT COUNT & AUTO [id number] 07:17:00 Test Item Value Reference Range Comments WHITE BLOOD CELL COUNT (BEAKER) (test wvju=433) 11.5 K/ L 4.0-10.0 RED BLOOD CELL COUNT (BEAKER) (test buhu=063) 3.50 M/ L 4.00-5.00 HEMOGLOBIN (BEAKER) (test mhsc=797) 11.8 GM/DL 12.0-15.0 HEMATOCRIT (BEAKER) (test bkxo=291) 36.2 % 36.0-45.0 MEAN CORPUSCULAR VOLUME (BEAKER) (test iscg=008) 103.0 fL 82.0-99.0 MEAN CORPUSCULAR HEMOGLOBIN (BEAKER) (test 33.6 pg 27.0-33.0 dnbx=555) MEAN CORPUSCULAR HEMOGLOBIN CONC (BEAKER) (test 32.6 GM/DL 32.0-36.0 wogc=435) RED CELL DISTRIBUTION WIDTH (BEAKER) (test 13.8 % 10.3-14.2 hubh=265) PLATELET COUNT (BEAKER) (test hgll=312) 198 K/CU MM 150-430 MEAN PLATELET VOLUME (BEAKER) (test urfi=723) 7.3 fL 6.5-10.5 NUCLEATED RED BLOOD CELLS (BEAKER) (test 0 /100 WBC 0-0 tphb=612) 0.000.570.000.000.520.000.000.000.00(MANUAL DIFFERENTIAL)2016-07-10 07:17:00 Test Item Value Reference Range Comments NEUTROPHILS - REL (DIFF) (BEAKER) (test bjsp=0733) 43 % LYMPHOCYTES - REL (DIFF) (BEAKER) (test schu=4555) 3 % MONOCYTES - REL (DIFF) (BEAKER) (test bqxo=1003) 6 % BANDS - REL (DIFF) (BEAKER) (test yllx=5578) 48 % 0-10 NEUTROPHILS - ABS (DIFF) (BEAKER) (test qopx=8902) 4.95 K/ L 1.80-8.00 LYMPHOCYTES - ABS (DIFF) (BEAKER) (test yedr=8449) 0.35 K/ L 1.48-4.50 MONOCYTES - ABS (DIFF) (BEAKER) (test hzat=3429) 0.69 K/ L 0.00-1.30 BANDS-ABS (DIFF) (BEAKER) (test wvdp=7271) 5.5 K/ L 0.0-0.8 TOTAL COUNTED (BEAKER) (test pstr=8762) 100 BANDS + SEGMENTED NEUTROPHILS (BEAKER) (test 10.47 ridd=6581) PLT MORPHOLOGY (BEAKER) (test prny=177) Normal RBC MORPHOLOGY (BEAKER) (test akxg=228) Normal ATYPICAL LYMPHS(BEAKER) (test ifwm=7572) Present TOXIC GRANULATION (BEAKER) (test iiyt=768) Slight POCT-GLUCOSE [id number] 06:25:00 Test Item Value Reference Range Comments POC-GLUCOSE METER (BEAKER) 186 mg/dL 70-110 TESTED AT [facility] [address] [facility] (test pgge=2967) [facility] [address] [id number] 04:46:00 Test Item Value Reference Range Comments MAGNESIUM (BEAKER) (test jqdf=376) 2.0 mg/dL 1.6-2.6 BASIC METABOLIC [id number] 04:46:00 Test Item Value Reference Range Comments SODIUM (BEAKER) (test 141 meq/L 136-145 zssd=598) POTASSIUM (BEAKER) (test 3.6 meq/L 3.5-5.1 adsx=624) CHLORIDE (BEAKER) (test 107 meq/L 98-107 whuk=357) CO2 (BEAKER) (test 26 meq/L 22-29 zqir=642) BLOOD UREA NITROGEN 25 mg/dL 7-21 (BEAKER) (test spzf=372) CREATININE (BEAKER) (test 0.81 mg/dL 0.57-1.25 snco=945) GLUCOSE RANDOM (BEAKER) 168 mg/dL 70-105 (test kpft=560) CALCIUM (BEAKER) (test 8.7 mg/dL 8.4-10.2 gner=303) EGFR (BEAKER) (test 69 mL/min/1.73 sq m ESTIMATED GFR IS NOT vbsl=6367) ACCURATE CREATININE CLEARANCE IN PREDICTING GLOMERULAR FILTRATION RATE. ESTIMATED GFR IS NOT APPLICABLE FOR DIALYSIS PATIENTS. POCT-GLUCOSE [id number] 00:44:00 Test Item Value Reference Range Comments POC-GLUCOSE METER (BEAKER) 176 mg/dL 70-110 TESTED AT [facility] [address] [facility] (test bqgs=6330) [facility] [address] HEMOGLOBIN [id number] 14:37:00 Test Item Value Reference Range Comments HEMOGLOBIN A1C (BEAKER) (test vwnf=093) 7.1 % 4.3-6.1 CBC W/PLT COUNT & AUTO [id number] 10:46:00 Test Item Value Reference Range Comments WHITE BLOOD CELL COUNT (BEAKER) (test vsds=187) 11.3 K/ L 4.0-10.0 RED BLOOD CELL COUNT (BEAKER) (test melq=194) 3.67 M/ L 4.00-5.00 HEMOGLOBIN (BEAKER) (test tfka=437) 12.4 GM/DL 12.0-15.0 HEMATOCRIT (BEAKER) (test rtrw=434) 37.3 % 36.0-45.0 MEAN CORPUSCULAR VOLUME (BEAKER) (test izgx=076) 102.0 fL 82.0-99.0 MEAN CORPUSCULAR HEMOGLOBIN (BEAKER) (test 33.9 pg 27.0-33.0 ikgu=102) MEAN CORPUSCULAR HEMOGLOBIN CONC (BEAKER) (test 33.3 GM/DL 32.0-36.0 cosn=029) RED CELL DISTRIBUTION WIDTH (BEAKER) (test 12.9 % 10.3-14.2 bqlq=233) PLATELET COUNT (BEAKER) (test fsgq=295) 198 K/CU MM 150-430 MEAN PLATELET VOLUME (BEAKER) (test cnju=488) 7.3 fL 6.5-10.5 NUCLEATED RED BLOOD CELLS (BEAKER) (test 0 /100 WBC 0-0 ttau=042) NEUTROPHILS RELATIVE PERCENT (BEAKER) (test 92 % kgoe=433) LYMPHOCYTES RELATIVE PERCENT (BEAKER) (test 3 % xytt=852) MONOCYTES RELATIVE PERCENT (BEAKER) (test 4 % cjxv=927) EOSINOPHILS RELATIVE PERCENT (BEAKER) (test 0 % ijxe=623) BASOPHILS RELATIVE PERCENT (BEAKER) (test 1 % kfmf=613) NEUTROPHILS ABSOLUTE COUNT (BEAKER) (test 10.40 K/ L 1.80-8.00 hqly=474) LYMPHOCYTES ABSOLUTE COUNT (BEAKER) (test 0.36 K/ L 1.48-4.50 flzn=379) MONOCYTES ABSOLUTE COUNT (BEAKER) (test 0.44 K/ L 0.00-1.30 yqrr=878) EOSINOPHILS ABSOLUTE COUNT (BEAKER) (test 0.01 K/ L 0.00-0.50 gwdc=876) BASOPHILS ABSOLUTE COUNT (BEAKER) (test 0.15 K/ L 0.00-0.20 yzln=005) [id number] 10:40:00 Test Item Value Reference Range Comments MAGNESIUM (BEAKER) (test tqwc=065) 1.8 mg/dL 1.6-2.6 BASIC METABOLIC [id number] 10:40:00 Test Item Value Reference Range Comments SODIUM (BEAKER) (test 141 meq/L 136-145 wscj=904) POTASSIUM (BEAKER) (test 4.2 meq/L 3.5-5.1 ians=928) CHLORIDE (BEAKER) (test 106 meq/L 98-107 tvgz=263) CO2 (BEAKER) (test 24 meq/L 22-29 kqhd=325) BLOOD UREA NITROGEN 22 mg/dL 7-21 (BEAKER) (test gabo=611) CREATININE (BEAKER) (test 0.84 mg/dL 0.57-1.25 dahk=488) GLUCOSE RANDOM (BEAKER) 158 mg/dL 70-105 (test jllf=699) CALCIUM (BEAKER) (test 8.6 mg/dL 8.4-10.2 feee=218) EGFR (BEAKER) (test 66 mL/min/1.73 sq m ESTIMATED GFR IS NOT ifmt=4960) ACCURATE CREATININE CLEARANCE IN PREDICTING GLOMERULAR FILTRATION RATE. ESTIMATED GFR IS NOT APPLICABLE FOR DIALYSIS PATIENTS. [id number] 10:40:00 Test Item Value Reference Range Comments PARTIAL THROMBOPLASTIN TIME (BEAKER) (test 30.6 seconds 22.5-36.0 pupf=644) PROTHROMBIN TIME/[id number] 10:39:00 Test Item Value Reference Range Comments PROTIME (BEAKER) (test dsbs=140) 14.3 seconds 11.7-14.7 INR (BEAKER) (test npct=776) 1.1 <=5.9 RECOMMENDED COUMADIN/WARFARIN INR THERAPY RANGESSTANDARD DOSE: 2.0 - 3.0 Includes: PROPHYLAXIS forvenous thrombosis, systemic embolization; TREATMENT for venous thrombosis and/or pulmonary embolus.HIGH RISK: Target INR is 2.5-3.5 for patients with mechanical heart valves.
[2018-10-01] MEDS ORDERED: NA CHLORIDE 0.9% 250 ML ONE (12:44)
[2018-10-01 12:48] VITALS: O2SAT 95; BMI 35.3
[2018-10-01 13:01] VITALS: BP 171/83; TEMP 98.6
== END 2018-10-01 13:00 | disposition home health service (06) ==
LOC: DS 11:34
PROVIDERS: ATTEND Internal Medicine
DX: M81.0 Age-related osteoporosis without current pathological fracture (principal); R13.10 Dysphagia, unspecified
CPT/HCPCS: 96365; J3489